=== PATIENT | male | born 1960 | race Caucasian/White ===

== ENCOUNTER 2016-11-08 17:38 | Emergency (ER) | payer MEDICAID ==
[2016-11-08 18:51] VITALS: BP 114/76
== END 2016-11-08 18:51 | disposition home or self-care (01) ==
LOC: ED 17:38
DX: S91.331A Puncture wound without foreign body, right foot, initial encounter (principal); W22.8XXA Striking against or struck by other objects, initial encounter; Y93.89 Activity, other specified; Y92.89 Other specified places as the place of occurrence of the external cause; Y99.0 Civilian activity done for income or pay
CPT/HCPCS: 90715; Q0092

== ENCOUNTER 2017-08-22 21:34 | Emergency (ER) | payer MEDICAID ==
[~2017-08-22] VITALS: Ht 157.5 cm; Wt 68.5 kg
[2017-08-22 21:45] VITALS: Ht 157.5 cm; Wt 68.5 kg
[2017-08-23 00:11] VITALS: BP 131/79
== END 2017-08-23 00:11 | disposition home or self-care (01) ==
LOC: ED 21:34
DX: R51 Headache (principal); R42 Dizziness and giddiness; R11.0 Nausea
CPT/HCPCS: J0780; J1885

== ENCOUNTER 2018-05-19 18:58 | Emergency (ER) | payer MEDICAID ==
[~2018-05-19] VITALS: Ht 160 cm; Wt 69.4 kg
[2018-05-19 19:01] VITALS: Ht 160 cm; Wt 69.4 kg
[2018-05-19 22:03] VITALS: BP 133/77
== END 2018-05-19 22:03 | disposition home or self-care (01) ==
LOC: ED 18:58
DX: N20.0 Calculus of kidney (principal); R31.9 Hematuria, unspecified
CPT/HCPCS: 87491; 87591

== ENCOUNTER 2019-01-28 13:13 | Emergency (ER) | payer MEDICAID ==
[~2019-01-28] VITALS: Ht 162.6 cm; Wt 63.0 kg
[2019-01-28 13:37] VITALS: Ht 162.6 cm; Wt 63.0 kg
[2019-01-28 19:00] VITALS: BP 126/78
== END 2019-01-28 18:50 | disposition home or self-care (01) ==
LOC: ED 13:13
DX: K59.00 Constipation, unspecified (principal); K62.5 Hemorrhage of anus and rectum
CPT/HCPCS: Q0092